=== PATIENT | female | born 1970 | race Caucasian/White ===

== ENCOUNTER 2022-04-16 11:12 | Outpatient (REF) | payer OTHER, SELFPAY ==
--- NOTE | ~2022-04-16 | MM_ITS ---
EXAMINATION: MM SCREENING DIGITAL BREAST TOMOSYNTHESIS, BILATERAL CLINICAL INFORMATION: Screening. Asymptomatic. Age 51. No prior breast imaging. No known family history breast cancer. The lifetime risk of breast cancer based on the Tyrer-Cuzick Model is 9%. COMPARISON: None (current study represents initial baseline exam). TECHNIQUE: Digital breast tomosynthesis is performed in both the craniocaudal and mediolateral oblique views along with computer-aided detection (CAD). Synthesized 2D images are generated from the tomosynthesis. FINDINGS: The breasts are heterogeneously dense, which may obscure small masses (ACR BI-RADS breast composition Category c). Left breast has a smooth oval mass mid lower inner left breast 0.9 x 0.7 cm. Right breast has a smooth oval mass anterior upper outer quadrant 1.2 x 1.1 cm. Patient will be recalled to further characterize the baseline appearance of the bilateral masses. There is no architectural abnormality. No abnormal calcifications. The axilla and skin contours are unremarkable. MM/MM tomosynthesis screening BI IMPRESSION: Left: -Benign-appearing smooth oval mass mid lower inner quadrant 0.9 cm. Right: -Benign-appearing smooth oval mass anterior upper outer quadrant 1.2 cm. ASSESSMENT: BI-RADS 0: Incomplete - Need Additional Imaging Evaluation RECOMMENDATION: 1. Bilateral targeted breast ultrasound. 2. Radiology department staff will contact the patient for additional imaging. This patient's information was entered into a reminder system with a target due date for their next mammogram.
== END 2022-04-16 11:13 | disposition home or self-care (01) ==
LOC: HO.MAMMO 11:12
PROVIDERS: PCP Internal Medicine; Visit Provider Internal Medicine
DX: Z12.31 Encounter for screening mammogram for malignant neoplasm of breast (principal)
CPT/HCPCS: 77063; 77067

== ENCOUNTER 2022-04-30 13:31 | Outpatient (REF) | payer OTHER, SELFPAY ==
--- NOTE | ~2022-04-30 | US_ITS ---
EXAMINATION: US DIAGNOSTIC ULTRASOUND BREAST, RIGHT US DIAGNOSTIC ULTRASOUND BREAST, LEFT CLINICAL INFORMATION: Recall from baseline screening for smooth oval mass mid lower inner left breast and smooth oval mass anterior upper outer right breast, respectively. COMPARISON: Mammography 04/16/2022 (baseline, BI-RADS 0). TECHNIQUE: Ultrasound bilateral breasts is targeted to the areas of concern as noted on recent screening mammography. Grayscale imaging and color Doppler are performed without and with harmonics. FINDINGS: Right: There is a circumscribed complicated acorn cyst corresponding to the finding on mammography in the anterior upper outer breast measuring 1 cm in diameter. There are smooth margins. Internally, there is anechoic portion with smooth wavy interface with homogeneous internal echogenicity, acorn appearance. No internal or peripheral color flow. Finding likely represents apocrine metaplasia. Left: There is a circumscribed anechoic cyst 8:00 position measuring 0.9 cm and corresponding to the mammography. A fine thin avascular internal septation is present. No peripheral or internal color flow. Increased through-transmission of sound is present. Results are discussed with the patient at time of visit. Management plan is for short interval targeted ultrasound follow-up of the right breast with acorn cyst in 6 months. US/US breast RT limited IMPRESSION: Right: -Probable benign 1 cm acorn cyst anterior upper outer quadrant corresponding to finding on baseline mammography. Left: -Benign 0.9 cm cyst with fine internal avascular septations 8:00 position corresponding to finding on baseline mammography. ASSESSMENT: BI-RADS 3: Probably Benign RECOMMENDATION: Targeted right breast ultrasound in 6 months. This patient's information was entered into a reminder system with a target due date for their next mammogram.
--- NOTE | ~2022-04-30 | US_ITS ---
EXAMINATION: US DIAGNOSTIC ULTRASOUND BREAST, RIGHT US DIAGNOSTIC ULTRASOUND BREAST, LEFT CLINICAL INFORMATION: Recall from baseline screening for smooth oval mass mid lower inner left breast and smooth oval mass anterior upper outer right breast, respectively. COMPARISON: Mammography 04/16/2022 (baseline, BI-RADS 0). TECHNIQUE: Ultrasound bilateral breasts is targeted to the areas of concern as noted on recent screening mammography. Grayscale imaging and color Doppler are performed without and with harmonics. FINDINGS: Right: There is a circumscribed complicated acorn cyst corresponding to the finding on mammography in the anterior upper outer breast measuring 1 cm in diameter. There are smooth margins. Internally, there is anechoic portion with smooth wavy interface with homogeneous internal echogenicity, acorn appearance. No internal or peripheral color flow. Finding likely represents apocrine metaplasia. Left: There is a circumscribed anechoic cyst 8:00 position measuring 0.9 cm and corresponding to the mammography. A fine thin avascular internal septation is present. No peripheral or internal color flow. Increased through-transmission of sound is present. Results are discussed with the patient at time of visit. Management plan is for short interval targeted ultrasound follow-up of the right breast with acorn cyst in 6 months. US/US breast LT limited IMPRESSION: Right: -Probable benign 1 cm acorn cyst anterior upper outer quadrant corresponding to finding on baseline mammography. Left: -Benign 0.9 cm cyst with fine internal avascular septations 8:00 position corresponding to finding on baseline mammography. ASSESSMENT: BI-RADS 3: Probably Benign RECOMMENDATION: Targeted right breast ultrasound in 6 months. This patient's information was entered into a reminder system with a target due date for their next mammogram.
== END 2022-04-30 13:32 | disposition home or self-care (01) ==
LOC: HO.MAMMO 13:31
PROVIDERS: Visit Provider Internal Medicine
DX: N63.25 Unspecified lump in the left breast, overlapping quadrants (principal); N63.15 Unspecified lump in the right breast, overlapping quadrants
CPT/HCPCS: 76642

== ENCOUNTER 2022-10-20 16:48 | Emergency (ER) | payer OTHER, SELFPAY ==
--- NOTE | ~2022-10-20 | XR_ITS ---
EXAMINATION: XR WRIST, RIGHT CLINICAL INFORMATION: Pain rule out fracture COMPARISON: None TECHNIQUE: PA, lateral, and oblique views of the right wrist. FINDINGS: Mildly displaced angulated distal radial . The fractures of the radius does not involve the articular surface. Radiocarpal, intercarpal and carpometacarpal joints remain intact. Comminuted intra-articular fracture of the distal ulna and ulnar styloid. XR/XR wrist RT min 3V IMPRESSION: * Nonarticular Mildly displaced angulated distal radial fracture. * Comminuted intra-articular fracture of the distal ulnar and ulnar styloids.
[2022-10-20 16:49] VITALS: BP 150/75; PULSE 75; RESP 18; TEMP 37.2; O2SAT 100; BMI 22.8
--- NOTE | 2022-10-20 16:53 | ED.EXTPRO ---
HPI - Extremity Problem General Chief complaint: Extremity Injury, Upper <Otto Rosado MD - Last Filed: 10/20/22 16:54> Stated complaint: fall, wrist injury <Otto Rosado MD - Last Filed: 10/20/22 16:54> Time Seen by Provider: 10/20/22 16:53 <Otto Rosado MD - Last Filed: 10/20/22 16:54> Source: patient and family <GARY Hou - Last Filed: 10/20/22 17:53> Mode of arrival: ambulatory <GARY Hou - Last Filed: 10/20/22 17:53> Limitations: no limitations <GARY Hou - Last Filed: 10/20/22 17:53> History of Present Illness HPI Narrative: 52-year-old female presenting to the ER after she had a mechanical fall prior to arrival where she was walking out to her car from work and she missed 1 of the steps and fell onto her right wrist. Denies head injury loss consciousness or prolonged down time. She denies any symptoms prior to the fall. She denies any symptoms after the fall only right wrist pain/ swelling / deformity. She denies any other injuries complaints or concerns at this time. <GARY Hou - Last Filed: 10/20/22 17:53> MD Complaint: joint swelling and joint pain <GARY Hou - Last Filed: 10/20/22 17:53> Onset (ago): hour(s) ( Prior to arrival) <GARY Hou - Last Filed: 10/20/22 17:53> Pain Consistency: constant <GARY Hou - Last Filed: 10/20/22 17:53> Location: right and upper extremity (wrist) <GARY Hou - Last Filed: 10/20/22 17:53> Quality: aching <GARY Hou - Last Filed: 10/20/22 17:53> Radiation: none <GARY Hou - Last Filed: 10/20/22 17:53> Relieving factors: nothing <GARY Hou - Last Filed: 10/20/22 17:53> Exacerbating factors: range of motion and palpation <GARY Hou - Last Filed: 10/20/22 17:53> Associated symptoms: denies other symptoms <GARY Hou - Last Filed: 10/20/22 17:53> Related Data Home medications: Previous Rx's Medication Instructions Recorded ibuprofen 800 mg tablet 800 mg PO Q8H PRN pain #14 tabs 10/20/22 oxycodone 5 mg tablet 5 mg PO Q6H PRN pain #14 tabs 10/20/22 <Otto Rosado MD - Last Filed: 10/20/22 16:54> Allergies/Adverse reactions: Allergies Allergy/AdvReac Type Severity Reaction Status Date / Time No Known Allergies Allergy Verified 03/10/22 07:54 <Otto Rosado MD - Last Filed: 10/20/22 16:54> Review of Systems Review of Systems: Constitutional : No Weight loss, No Fever, No Chills, No Night Sweats, No Fatigue, No Malaise ENT/Mouth : No Hearing loss, No Ear Pain, No Nasal Congestion, No Sinus Pain, No Hoarseness, No sore throat, No Rhinorrhea, No Swallowing Difficulty Eyes: No Eye Pain, No Swelling, No Redness, No Foreign Body, No Discharge, No Vision Changes Cardiovascular : No Chest Pain, No SOB, No Dyspnea on Exertion, No Orthopnea, No Edema, No Palpitations Respiratory : No Cough, No Sputum, No Wheezing, No Smoke Exposure, No Dyspnea Gastrointestinal : No Nausea, No Vomiting, No Diarrhea, No Constipation, No abdominal Pain, No Hematochezia, No Melena Genitourinary : no irregular bleeding, No Dysuria, No Urinary Frequency, No Hematuria, No Urinary Incontinence, No Urgency, No Flank Pain, No Urinary Flow Changes, No Hesitancy Musculoskeletal : + right wrist joint pain/swelling, No Myalgias Skin : No Skin Lesions, No rash Neuro : No Weakness, No Numbness, No Paresthesias, No Loss of Consciousness, No Dizziness, No Headache Psych : No Anxiety/Panic, No Depression, No SI/HI/AH/VH, No Social Issues, Heme/Lymph: No Bruising, No Bleeding,No Lymphadenopathy Endocrine : No Polyuria, No Polydipsia, No Temperature Intolerance <GARY Hou - Last Filed: 10/20/22 17:53> Yes all other systems are reviewed and are negative <GARY Hou - Last Filed: 10/20/22 17:53> [facility] Past Medical History Attestation statement: The following information was validated with the patient. 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, 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 Tobacco Use Status: Former Tobacco user e-Cigarette/Vaping Use: Never Used Advance Directives: No Advance Directives Information Provided: Yes service: No Current occupational status: employed Cognitive needs: No Hearing needs: No Vision needs: No <Otto Rosado MD - Last Filed: 10/20/22 16:54> Physical Exam Vital Signs: Vital Signs: Last Vital Signs Temp 98.9 F 10/20/22 16:49 Pulse 75 10/20/22 16:49 Resp 18 10/20/22 16:49 BP 150/75 H 10/20/22 16:49 Pulse Ox 100 10/20/22 16:49 BMI result Body Mass Index 22.8 <Otto Rosado MD - Last Filed: 10/20/22 16:54> Vital Signs: Last Vital Signs Temp 98.9 F 10/20/22 16:49 Pulse 75 10/20/22 16:49 Resp 18 10/20/22 16:49 BP 150/75 H 10/20/22 16:49 Pulse Ox 100 10/20/22 16:49 BMI result Body Mass Index 22.8 vital signs have been reviewed as normal and appeared to be correct. Blood pressure 150/75 Heart rate normal. Respiration rate normal. Temperature normal. Oxygen saturation normal. <GARY Hou - Last Filed: 10/20/22 17:53> Appearance: Alert. Oriented X3. No acute distress. Head: Normal external exam. Normocephalic. Atraumatic. Eyes: PERRLA. EOMI. Conjunctiva and sclera normal. Eyelids normal. ENT: Pharynx normal. Uvula midline. Moist mucous membranes. Neck: Normal inspection. Neck supple. FROM. CVS: Normal heart rate and rhythm. Respiratory: No respiratory distress. Painless inspiration. Skin: Skin warm and dry. Normal skin color. Normal skin turgor. No rashes/lesions/lacerations noted. Extremities: patient moderate tenderness palpation to her right wrist at the radial aspect with obvious deformity consistent with radial distal fracture. Mild tenderness palpation to the ulnar aspect as well. Limited range of motion due to pain/ swelling and obvious deformity. No obvious ligamentous or tendon injury noted. Otherwise all other extremities exhibit normal range of motion nontender. Neuro: Oriented X 3. No motor deficit. No sensory deficit. Reflexes normal. Normal steady gait. No focal neuro deficits noted. Vascular: + radial pulses Normal cap refill. No cyanosis noted to upper extremity nails <GARY Hou - Last Filed: 10/20/22 17:53> Course Course Course Narrative: RME: 52-year-old female who fell in a parking lot around 16:00 hours injuring her right wrist. Patient has a obvious deformity with soft tissue swelling and pain with palpation of the wrist. Patient was given an ice pack. She took ibuprofen prior to coming to the emergency department and does not want Tylenol. X-ray of the right wrist was ordered. <Otto Rosado MD - Last Filed: 10/20/22 16:54> Reevaluation(s) Reevaluation #1: I discussed this case with CHERYL Garrett who reported that due to the fracture being rotated and lateral that reducing it will not make much of a difference therefore she instructed me to put her in a volar splint or a sugar-tong although the sugar-tong should be patted and she should be able to move her fingers. Therefore I discussed this with the tech in the nurse and we will be giving her 5 mg of oxycodone and putting her in a sugar-tong splint with extra padding and a sling and instructions to follow-up orthopedics. Patient understands agrees with this plan. <GARY Hou - Last Filed: 10/20/22 17:53> Time: 17:31 <GARY Hou - Last Filed: 10/20/22 17:53> Medications Administered Discontinued Medications Generic Name Dose Route Start Last Admin Trade Name Freq PRN Reason Stop Dose Admin Oxycodone HCl 5 mg 10/20/22 17:23 10/20/22 17:31 Oxycodone Hcl Immed Release 5 Mg Tablet PO 10/20/22 17:24 5 mg ONCE ONE Administration <Otto Rosado MD - Last Filed: 10/20/22 16:54> Medications Administered Discontinued Medications Generic Name Dose Route Start Last Admin Trade Name Freq PRN Reason Stop Dose Admin Oxycodone HCl 5 mg 10/20/22 17:23 10/20/22 17:31 Oxycodone Hcl Immed Release 5 Mg Tablet PO 10/20/22 17:24 5 mg ONCE ONE Administration <GARY Hou - Last Filed: 10/20/22 17:53> Medical Decision Making Independent Historian Clinical information obtained from an independent historian. History obtained from or confirmed by: Spouse and Parent <GARY Hou - Last Filed: 10/20/22 17:53> Procedures Orthopedic Splinting/Casting Injury #1: Side: right <GARY Hou - Last Filed: 10/20/22 17:53> Upper Extremity Injury Location: wrist <GARY Hou Last Filed: 10/20/22 17:53> Upper Extremity Immobilizer: sugar tong splint <GARY Hou - Last Filed: 10/20/22 17:53> Discharge Plan Discharge Clinical Impression: Fall, Fracture of right wrist <Otto Rosado MD - Last Filed: 10/20/22 16:54> Patient Disposition: Home, Self-Care <Otto Rosado MD - Last Filed: 10/20/22 16:54> Instructions: Wrist Fracture in Adults (ED) <Otto Rosado MD - Last Filed: 10/20/22 16:54> Prescriptions: New ibuprofen 800 mg tablet 800 mg PO Q8H PRN (Reason: pain) Qty: 14 0RF oxycodone 5 mg tablet 5 mg PO Q6H PRN (Reason: pain) Qty: 14 0RF Rx Instructions: Partial Fill upon patient request. <Otto Rosado MD - Last Filed: 10/20/22 16:54> Referrals: [facility] [Provider Group] (To make a follow-up appointment) <Otto Rosado MD - Last Filed: 10/20/22 16:54> Stand Alone Forms: Work/School Release <Otto Rosado MD - Last Filed: 10/20/22 16:54>
[2022-10-20] MEDS: oxyCODONE HCl Immed Release 5 MG TABLET PO (17:31)
== END 2022-10-20 18:04 | disposition home or self-care (01) ==
PROVIDERS: Emergency Provider Emergency Medicine Emergency Medical Services
DX: S52.611A Displaced fracture of right ulna styloid process, initial encounter for closed fracture (principal); S52.501A Unspecified fracture of the lower end of right radius, initial encounter for closed fracture; W10.8XXA Fall (on) (from) other stairs and steps, initial encounter; Y93.9 Activity, unspecified; Y92.9 Unspecified place or not applicable; Y99.0 Civilian activity done for income or pay
CPT/HCPCS: 29125; 73110; 99284

== ENCOUNTER 2022-10-22 07:57 | Outpatient (REF) | payer OTHER, SELFPAY ==
--- NOTE | ~2022-10-22 | XR_ITS ---
EXAMINATION: XR WRIST, RIGHT CLINICAL INFORMATION: Fractures right distal radius and ulnar. Follow-up. COMPARISON: Right wrist radiographs 10/20/2022. TECHNIQUE: Right wrist is imaged in 3 views. FINDINGS: There are fractures of the distal radius and distal ulnar similar to prior exam 10/20/2022. The radial fracture is horizontal with dorsal displacement distal fragment by at least one third bone diameter and mild dorsal angulation of the distal fragment. The distal ulnar fracture is comminuted with intra-articular extension. There is slight negative ulnar variance. No dislocation or destructive process. XR/XR wrist RT min 3V IMPRESSION: Fractures distal radius and ulna similar to prior exam 10/20/2022.
== END 2022-10-22 07:58 | disposition home or self-care (01) ==
LOC: HO.HOSX 07:57
PROVIDERS: Visit Provider Physician Assistant
DX: Z01.818 Encounter for other preprocedural examination (principal); S52.501A Unspecified fracture of the lower end of right radius, initial encounter for closed fracture; S52.601A Unspecified fracture of lower end of right ulna, initial encounter for closed fracture
CPT/HCPCS: 29125; 73110

== ENCOUNTER 2022-10-27 05:57 | Day surgery (SDC) | payer OTHER, SELFPAY ==
[2022-10-27] VITALS (10 sets, daily range): BP systolic 93–139; BP diastolic 48–75; PULSE 55–62; RESP 16–20; TEMP 36.9–37; O2SAT 95–98; BMI 213.2
--- NOTE | ~2022-10-27 | FL_ITS ---
EXAMINATION: XR FLUOROSCOPY WITH IMAGES CLINICAL INFORMATION: Radial fracture, post reduction COMPARISON: Right wrist radiographs 10/22/2022 TECHNIQUE: Fluoroscopy Supervised By: Dr. Mable Mcarthur. Fluoroscopy Time: 18 seconds. Cumulative Dose: 0.4748 mGy. DAP: 0.0287 Gycm2. Images: 3. FINDINGS: Distal radial fracture is reduced with volar side plate and screws. Hardware is intact. Major fracture fragments are in near-anatomic alignment. No dislocation. No significant change distal ulnar fracture. FL/FL guidance in OR IMPRESSION: Status post open reduction internal fixation distal radial fracture.
[2022-10-27] MEDS: Lactated Ringers 1,000 ML 100 ML IVCONT (06:49)
--- NOTE | 2022-10-27 07:34 | P.CONAN_ITS ---
HPI - Anesthesia Eval Consult details Narrative: 52 yo female patient for Right wrist ORIF PMFSH Active Problems Active Problems: All Active Problems (Updated 10/22/22 @ 11:06 by Sully Vega) Fracture of right distal radius (Acute) Annual physical exam (Acute) Past Medical History Medical History Annual physical exam Family History Family History Mother Substance use disorder [place] (myocardial infarction), Onset Age: 65 Father Substance use disorder [place] (myocardial infarction), Onset Age: 58 Sister Mental health disorder Family history of problems with anesthesia: No Surgical History History of Problems with Anesthesia: No Social History Social History (Updated 10/22/22 @ 10:45 by Aimee Ho) 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:: , 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, 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 Tobacco Use Status: Former Tobacco user Quit Date: 10 years ago e-Cigarette/Vaping Use: Never Used Use of substances other than those prescribed or required for medical reasons: No Are you DNR?: No Advance Directives: No Advance Directives Information Provided: Yes service: No Current occupational status: employed 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, 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 Cognitive needs: No Hearing needs: No Vision needs: No Meds Allergies Allergy/AdvReac Type Severity Reaction Status Date / Time No Known Allergies Allergy Verified 10/22/22 10:58 Active Medications: Current Medications Lactated Ringer's (Lr) 1,000 mls @ 100 mls/hr IVCONT .Q10H SHERIDAN Last Admin: 10/27/22 06:49 Dose: 100 mls/hr Exam Exam Date and Time: October 27, 2022 0734 Height,Weight and Vital Signs: Height 5 ft 2 in Weight 52.6 kg Last Vital Signs Temp 98.6 F 10/27/22 06:31 Pulse 62 10/27/22 06:31 Resp 18 10/27/22 06:31 BP 139/68 10/27/22 06:31 Pulse Ox 98 10/27/22 06:31 O2 Del Method 10/27/22 06:31 Airway Mallampati Class: II TM Dist: >3cm Neck ROM: Full Loose/Missing/Broken Teeth: Yes (Many missing. Denies loose or broken teeth) Heart: RRR Lungs: CTAB Assessment and Plan Assessment Anesthesia Assessment: Anesthesia Plan Discussed Final Anesthetic Review Family History of Problems with Anesthesia: No History of Problems with Anesthesia: No NPO: Yes ASA Class: I Final Preanesthetic Review: No Changes in Pt Med Stat, Meds/Allgs Chart Reviewed, Consent Obtained/Reviewed and Anes Risks/Benef Reviewed Patient Risk: Low Procedure Risk: Low Assessment/Block/Sedation in SS: Assess/Block/Sedation-SS Anesthetic Plan Anesthetic Plan: GA and Regional Block (Right supraclavicular nerve block) Disposition: Standard PACU
--- NOTE | 2022-10-27 08:07 | MHC.SHP ---
Pre-Procedural Eval Section A Date of Service: 10/27/22 The patient is an INPATIENT: No Changes since office visit: No Cold of Flu in the past 2 weeks, No New Medical Problems, No Changes in Medication and No Patient answered all questions The History & Physical has been completed within 30 days and I have reviewed it.: Yes Section B Chief Complaint: Unspecified fracture of the lower end of right rad Allergies: Allergies Allergy/AdvReac Type Severity Reaction Status Date / Time No Known Allergies Allergy Verified 10/22/22 10:58 Plan I have reviewed the history and physical and performed a pertinent physical examination on my patient. No changes have occurred unless specified. Time Spent With Patient Time: Total time managing care of this patient today ____ minutes.
--- NOTE | 2022-10-27 08:08 | P.OP_ITS ---
Operative Note Operative Note Date of Service: 10/27/22 Narrative: Operative Note Narrative: Preop diagnosis: 1. Right Distal radius fracture 2. Right distal ulna fracture Postop diagnosis: Same Procedure: 1. Right Distal radius fracture open reduction internal fixation, extra- articular Surgeon: Mable Mcarthur MD Anesthesia: General anesthesia plus regional block Findings: right distal radius metaphyseal fracture with interposed muscle. Nondisplaced ulnar styloid base fracture and an additional fracture through the head of the ulna in satisfactory alignment and stabilized with sugar-tong splinting Implants: A 3 hole Accu Med volar locking plate, with 4x 2.3 mm locking pegs/screws, and 3 3.5 mm cortical screws Tourniquet time: 36 minutes EBL: 5.0 ml Specimen: None Drains: None Complications: None Disposition: Brought to the recovery room in stable condition Plan: Follow-up in 10-14 days for wound check, suture removal and postop radiographs The patient will be placed in either volar wrist splint, limiting prono- supination for additional 2 weeks. Encouraged no lifting of anything heavier than a cell phone. Please encourage active and passive range of motion of the digits. Follow-up at 4-5 weeks postop for repeat radiographs. Indications: The patient is a 52 year old woman with a right distal radius fracture, and comminuted fracture of the distal ulna . The risks and benefits of operative treatment, including but not limited to risk of damage to blood vessels, nerves, tendons, infection, recurrence, persistent pain or numbness, incomplete resolution of preoperative symptoms, or need for further surgery were discussed with the patient and they wished to proceed with surgery. Procedure: Once consent was obtained patient was brought back to the operating suite and placed in the operating table in a supine position. A regional block was performed by the anesthesia team. Perioperative antibiotics and anesthesia was administered by the anesthesia team. A tourniquet was applied to the proximal aspect of the right upper extremity and the limb was prepped and draped in a standard surgical fashion. The limb was elevated exsanguinated with Esmarch bandage and the tourniquet inflated to 250 mm of mercury for a total tourniquet time of 36 minutes. The FluoroScan was used throughout the case to assess our reduction, and facilitate implant placement. A gentle closed reduction was 1st performed on the patient's right distal radius fracture. Was assessed radiographically before proceeding with the reduction internal fixation. I then made an 8 cm longitudinal incision over the distal aspect of the flexor carpi radialis tendon. The incision was made through the skin to the subcutaneous tissue using a 15. Blade. Then carefully dissected down to flexor carpi radialis tendon she tenotomy scissors. The FCR tendon sheath was then incised longitudinally using tenotomy scissors under direct visualization. The FCR tendon was then retracted ulnarly. I then made a longitudinal incision in the volar forearm fascia through the floor of FCR tendon sheath using tenotomy scissors under direct visualization. I identified the interval between the radial artery and the flexor tendons. This interval was developed further with my index finger, releasing some of the muscular fibers of the flexor pollicis longus. A dull weatlander retractor was then placed. I then created an ulnarly based flap of the pronator quadratus by releasing the radial and distal edges using a 15. Blade. A Alexandra elevator was used to elevate the pronator quadratus from the volar surface of the distal radius. This then revealed to us our distal radius fracture. An open reduction was then performed on our distal radius fracture. I then placed a short narrow 3 hole Accu Med volar locking plate on the volar surface of the distal radius. I placed a single K-wire through the distal aspect of the plate and into the distal radius. This was assessed using fluoroscopic images. I was satisfied with the placement of our plate. I then placed 4x 2.3 mm locking screws/pegs in the distal aspect of the plate and distal radius by 1st drilling bicortically with a 2.0 mm drill bit, measuring with a depth gauge, and placing the appropriate length locking screws/pegs. The placement of our plate and screws was then assessed again using fluoroscopic images. The once satisfied with the placement of the volar locking plate and screws on the distal aspect of the distal radius, the plate was then reduced to the shaft of the radius. I then placed 3 3.5 mm cortical screws to the proximal aspect of the plate and into the shaft of the radius. This was done by 1st drilling bicortically with a 2.8 mm drill bit, measuring with a depth gauge, and placing the appropriate length screw. Final radiographs were then obtained. I was satisfied with our reduction and placement of all implants. The distal ulna fracture appear to be in satisfactory alignment. No fixation appeared necessary, however the fracture needs to be protected in a sugar-tong splint in slight supination. Sugar-tong splint was applied in this position. At this point the wound was irrigated with normal saline. The pronator quadra tus was reduced back over the volar locking plate using some 3-0 Vicryl suture material. The tourniquet was then deflated and hemostasis was obtained with a brief period of local pressure and bipolar monopolar electrocautery. The subcutaneous layer was then reapproximated using some 4-0 Vicryl suture, and the skin edges were reapproximated using some 5 0 Prolene suture. The wound was then infiltrated with some 1% lidocaine with epinephrine postop pain control. A sterile dressing and a Trigger tong splint was applied allowing for active flexion and extension of the digits was applied. The patient appears to have tolerated the procedure well and with no complications. All digits were well vascularized conclusion of the case.
[2022-10-27] MEDS: Ketorolac Tromethamine 30 MG/ML VIAL 15 MG IVPUSH (09:49)
[2022-10-27] MEDS: oxyCODONE HCl Immed Release 5 MG TABLET PO (09:52)
[2022-10-27] MEDS: fentaNYL citrate/PF 100 MCG/2 ML VIAL 25 MCG IVPUSH ×3 (09:54→10:20)
== END 2022-10-27 11:14 ==
LOC: HO.SSS 05:57
PROVIDERS: PCP Internal Medicine; Visit Provider Orthopaedic Surgery
PROC: (CPT 25607; principal; 2022-10-27 07:30)
DX: S52.591A Other fractures of lower end of right radius, initial encounter for closed fracture (principal); S52.611A Displaced fracture of right ulna styloid process, initial encounter for closed fracture; M25.531 Pain in right wrist; W10.8XXA Fall (on) (from) other stairs and steps, initial encounter; Y93.89 Activity, other specified; Y92.9 Unspecified place or not applicable; Y99.8 Other external cause status; Z79.1 Long term (current) use of non-steroidal anti-inflammatories (NSAID); Z87.891 Personal history of nicotine dependence
CPT/HCPCS: 25607; 25652; C1713; C1769; J0690; J1885; J2250; J2405; J2795; J3010

== ENCOUNTER 2022-11-08 14:33 | Outpatient (REF) | payer OTHER, SELFPAY | END 2022-11-08 14:34 | disposition home or self-care (01) | LOC: HO.HOSX 14:33 | PROVIDERS: Visit Provider Orthopaedic Surgery | DX: Z13.89 Encounter for screening for other disorder (principal) ==

== ENCOUNTER 2022-11-09 10:56 | Outpatient (REF) | payer OTHER, SELFPAY ==
--- NOTE | ~2022-11-09 | XR_ITS ---
EXAMINATION: XR WRIST, RIGHT CLINICAL INFORMATION: Radial fracture. Post reduction. Follow-up. COMPARISON: Radiographs right wrist 10/27/2022, 10/22/2022, 10/20/2022 TECHNIQUE: PA, lateral, and oblique views of the right wrist. FINDINGS: The distal radial hardware is intact. No destructive process or osteolysis. Fracture line still visible. The distal ulnar fracture alignment is stable. XR/XR wrist RT min 3V IMPRESSION: Status post ORIF distal radial fracture. Hardware intact. No destructive process. Alignment is stable.
== END 2022-11-09 10:57 | disposition home or self-care (01) ==
LOC: HO.HOSX 10:56
PROVIDERS: Visit Provider Physician Assistant
DX: S52.501D Unspecified fracture of the lower end of right radius, subsequent encounter for closed fracture with routine healing (principal); S52.601D Unspecified fracture of lower end of right ulna, subsequent encounter for closed fracture with routine healing; X58.XXXD Exposure to other specified factors, subsequent encounter
CPT/HCPCS: 73110

== ENCOUNTER 2022-11-26 12:48 | Outpatient (REF) | payer OTHER, SELFPAY ==
--- NOTE | ~2022-11-26 | US_ITS ---
EXAMINATION: US DIAGNOSTIC ULTRASOUND BREAST, RIGHT CLINICAL INFORMATION: Short interval six-month follow-up 1 cm acorn cyst anterior upper outer right breast. COMPARISON: Mammography 04/16/2022 and bilateral breast ultrasound 04/30/2022. TECHNIQUE: Ultrasound right breast is targeted to the upper and outer quadrant. Grayscale imaging and color Doppler are performed without and with harmonics. FINDINGS: The acorn cyst is no longer demonstrated. There is a simple cyst in this area measuring 0.7 cm with anechoic lumen, circumscribed margins, increased through-transmission of sound, no associated color flow. There is no solid mass or architectural abnormality. Results are discussed with the patient at time of visit. US/US breast RT limited IMPRESSION: -Simple cyst at site of prior acorn cyst, slightly decreased in size from prior exam. ASSESSMENT: BI-RADS 2: Benign RECOMMENDATION: Routine annual mammography screening. This patient's information was entered into a reminder system with a target due date for their next mammogram.
== END 2022-11-26 12:49 | disposition home or self-care (01) ==
LOC: HO.MAMMO 12:48
PROVIDERS: PCP Internal Medicine; Visit Provider Internal Medicine
DX: N60.01 Solitary cyst of right breast (principal)
CPT/HCPCS: 76642

== ENCOUNTER 2022-12-08 11:33 | Outpatient (REF) | payer OTHER, SELFPAY ==
--- NOTE | ~2022-12-08 | XR_ITS ---
EXAMINATION: XR WRIST, RIGHT CLINICAL INFORMATION: Pain in the right wrist. COMPARISON: Prior radiographs most recent 11/09/2022 TECHNIQUE: PA, lateral, and oblique views of the right wrist. FINDINGS: Postoperative changes again noted with volar plate and screw fixation noted in place with an unchanged appearance. No hardware fracture or surrounding lucency. Alignment unchanged. Distal radial fracture remains partially lucent as previously. Persistent deformity of the distal ulna with fracture lines no longer visible compatible with posttraumatic change. The bones appear osteopenic when compared to initial x-ray and slightly increased compared to prior. XR/XR wrist RT min 3V IMPRESSION: 1. Stable postoperative changes. 2. No change in the appearance of the distal radius and ulna. Fracture line still visible in the radius. 3. Slight increase in osteopenia compared to prior. 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
== END 2022-12-08 11:34 | disposition home or self-care (01) ==
LOC: HO.HOSX 11:33
PROVIDERS: Visit Provider Orthopaedic Surgery
DX: S52.501D Unspecified fracture of the lower end of right radius, subsequent encounter for closed fracture with routine healing (principal); S52.601D Unspecified fracture of lower end of right ulna, subsequent encounter for closed fracture with routine healing; X58.XXXD Exposure to other specified factors, subsequent encounter
CPT/HCPCS: 73110

== ENCOUNTER → 2023-01-12 08:47 | Outpatient (BNVA) | payer OTHER, SELFPAY | PROVIDERS: PCP Internal Medicine; Visit Provider Orthopaedic Surgery | DX: Z13.89 Encounter for screening for other disorder (principal) ==

== ENCOUNTER 2023-02-11 13:00 | Outpatient (RCR) | payer OTHER, SELFPAY ==
--- NOTE | 2022-12-29 15:24 | MHC.OT.EP ---
[address] [phone] Occupational Therapy Plan of Care Patient Name: Sveta Sanderson Date of Evaluation: 12/29/22 Diagnosis: S/P R DISTAL RADIUS ORIF, COMMINUTED ULNAR HEAD AND STYLOID FRACTURE Pain Location: R WRIST PAINFREE AT REST 2/10 WITH USE Pain Score: 0-2/10 Pain Scale Used: Numeric (0 - 10) Aggravating Factors: FATIGUED AT END OF DAY, TYPING, REACHING BEHIND BACK Alleviating Factors: NONE UTILIZED Assessment: MS SANDERSON IS NINE WEEKS S/P ORIF OF R WRIST DUE TO A DISTAL RADIUS FRACTURE. ADDITIONALLY, SHE HAS A R ULNAR HEAD AND STYLOID FRACTURE. SHE REPORTS SHE HAS BEEN DOING HER EXERCISES PROVIDED BY DR LOONEY, AND MOSTLY DISCONTINUED HER PRE-HECTOR WRIST ORTHOSIS. IT IS NOTED THAT HER GREATEST LIMITATIONS ARE WITH WRIST FLEXION AND SUPINATION. MILD DIFFICULTIES REPORTED WITH DAILY ACTIVITIES, WITH EMERGING ABILITY TO LIFT HEAVIER ITEMS AND OPEN TIGHT JARS. A 16% LIMITATION IS REPORTED PER THE QUICK DASH ASSESSMENT. ONGOING OT IS WARRANTED TO ACHIEVE OPTIMAL FUNCTIONAL LEVEL AND IMPROVE QOL. 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 Thank you once again for your referral.
--- NOTE | 2023-02-11 13:40 | MHC.OT.DC ---
[address] [phone] F: [phone] Occupational Therapy Discharge Note Patient Name: Sveta Sanderson Provider: Dr Mable Mcarthur Diagnosis: S/P R DISTAL RADIUS ORIF, COMMINUTED ULNAR HEAD AND STYLOID FRACTURE Date of Surgery: 10/27/22 Date of Evaluation: 12/29/22 Date of Discharge: 02/11/23 Treatments to Date: 11 Cancellations to Date: 1 No Shows to Date: Discharge Status: Achieved Goals Improved Function Independent with HEP Discharge Summary: Sveta is now about 3.5 months s/p DRF w/ ORIF and has overall good progress w/ range and strength since initial assessment. She has been very motivated and has good follow through w/ HEP. No reported pain or functional deficits, I anticipate she will continue to improve range and strength through participation in home program and daily activities. Electronically Signed By: MIR Husain/Ge CHT Reviewed/agree with student documentation: N/A Therapist: Please Sign and return to therapist, thank you for your referral.
== END 2023-02-11 13:41 | disposition home or self-care (01) ==
LOC: HO.OT 13:00
PROVIDERS: PCP Internal Medicine; Visit Provider Orthopaedic Surgery
DX: S52.501A Unspecified fracture of the lower end of right radius, initial encounter for closed fracture (principal); S52.601A Unspecified fracture of lower end of right ulna, initial encounter for closed fracture
CPT/HCPCS: 97110; 97140; 97166; 97530

== ENCOUNTER 2023-04-18 07:15 | Outpatient (REF) | payer OTHER, SELFPAY ==
--- NOTE | ~2023-04-18 | MM_ITS ---
EXAMINATION: MM SCREENING DIGITAL BREAST TOMOSYNTHESIS, BILATERAL CLINICAL INFORMATION: Screening. Asymptomatic. The lifetime risk of breast cancer based on the Tyrer-Cuzick Model is 7%. COMPARISON: Mammography: 04/16/2022; right breast ultrasound 11/26/2022 TECHNIQUE: Digital breast tomosynthesis is performed in both the craniocaudal and mediolateral oblique views along with computer-aided detection (CAD). Synthesized 2D images are generated from the tomosynthesis. FINDINGS: The breasts are heterogeneously dense, which may obscure small masses (ACR BI-RADS breast composition Category c). There are no significant masses, abnormal calcifications, or other abnormalities. The circumscribed cyst anterior upper outer right breast noted on prior imaging is markedly regressed, no longer visualized. No developing density or architectural abnormality. The axilla and skin contours are unremarkable. MM/MM tomosynthesis screening BI IMPRESSION: No mammographic evidence of malignancy. ASSESSMENT: BI-RADS 2: Benign RECOMMENDATION: Routine annual mammography screening. This patient's information was entered into a reminder system with a target due date for their next mammogram.
== END 2023-04-18 07:16 | disposition home or self-care (01) ==
LOC: HO.MAMMO 07:15
PROVIDERS: PCP Internal Medicine; Visit Provider Internal Medicine
DX: Z12.31 Encounter for screening mammogram for malignant neoplasm of breast (principal)
CPT/HCPCS: 77063; 77067